=== PATIENT | female | born 1990 | race Caucasian/White ===

== ENCOUNTER 2016-12-22 13:13 | Inpatient (IN) | payer MEDICAID ==
[2016-12-22] VITALS (16 sets, daily range): BP systolic 113–150; BP diastolic 57–83; PULSE 58–92; TEMP 98.4–99.3
[~2016-12-22 13:13] MED LIST: AMOXICILLIN 50500 MG PO; AMOXICILLIN 8751 TAB PO; FLAGYL500 MG PO; GENTAMICIN EYE D5 ML; NO HOME MEDICATIONS; NORCO 325 MG-51 TAB PO; PERCOCET 325 MG1 TA2 PO
[2016-12-22 14:34] LABS: ADD PATHOLOGY DIFF REVIEW NO
[2016-12-22 14:47] LABS: HEMATOCRIT 38.7 % (37.0-47.0); HEMOGLOBIN 13.3 g/dl (12.5-16.0); MEAN CELL VOLUME 95 fl (80.0-100.0); MEAN CORPUSCULAR HEMOGLOBIN 33 pg (27.0-31.0); MEAN CORPUSCULAR HGB CONC 34 g/dl (33.0-37.0); PLATELET COUNT 270 K/mm3 (130-400); RED BLOOD COUNT 4.08 M/mm3 (4.10-5.30); REDCELL DISTRIBUTION WIDTH-CV 12.1 % (11.5-14.5); WHITE BLOOD COUNT 11.7 K/mm3 (4.8-10.8)
[2016-12-22 14:58] LABS: ADJUSTED CALCIUM 9.4 mg/dL (8.4-10.2); ALBUMIN 3.7 gm/dL (3.5-5.0); BILIRUBIN,TOTAL 0.5 mg/dL (0.0-1.0); CALCIUM 9.2 mg/dL (8.4-10.2); CREATININE, serum 0.69 mg/dL (0.52-1.25); POTASSIUM 3.8 mmol/L (3.4-5.0); TOTAL PROTEIN 7.5 gm/dL (6.4-8.2)
[2016-12-22 15:50] LABS: BAND 7 % (0-10); NEUTROPHILS 74 % (42.0-75.2); PLATELET ESTIMATE NORMAL (NORMAL); TOTAL CELLS COUNTED 100
[2016-12-22 15:50] LABS: AMPHETAMINE URINE NEGATIVE; BARBITURATES URINE NEGATIVE; BENZODIAZEPINES URINE NEGATIVE; BUPRENORPHINE URINE POSITIVE; METHADONE URINE NEGATIVE; OPIATES URINE NEGATIVE; OXYCODONE URINE NEGATIVE; PHENCYCLIDINE URINE NEGATIVE; PROPOXYPHENE URINE NEGATIVE; THC CANNABINOIDS URINE NEGATIVE
[2016-12-23] VITALS (11 sets, daily range): BP systolic 105–133; BP diastolic 56–86; PULSE 64–104; TEMP 98.5–98.8
[2016-12-23] MEDS ORDERED: MOTRIN 800800 MG/TAB PO (00:24)
[2016-12-25 08:05] LABS: FACTOR V LEIDEN MUTATION B Negative (Negative)
[2016-12-26 17:51] LABS: BETA-2 GPI IGG AABS <9.4 U/mL (()); BETA-2 GPI IGM AABS <9.4 U/mL (())
[2016-12-27 13:38] LABS: .ANTICARDIOLIPIN IGG <9.4 GPL (())
[2017-01-02 15:09] LABS: PARVOVIRUS B19 Negative (())
== END 2016-12-23 08:50 | disposition home or self-care (01) | DRG 767 ==
LOC: OB 13:13 → LDR 13:31
PROVIDERS: Obstetrics & Gynecology
PROC: 10E0XZZ Delivery of Products of Conception, External Approach (ICD-10-PCS; principal; 2016-12-23)
PROC: 10D17ZZ Extraction of Products of Conception, Retained, Via Natural or Artificial Opening (ICD-10-PCS; 2016-12-23)
DX: O36.4XX0 Maternal care for intrauterine death, not applicable or unspecified (principal); O73.1 Retained portions of placenta and membranes, without hemorrhage; O09.32 Supervision of pregnancy with insufficient antenatal care, second trimester; O99.334 Smoking (tobacco) complicating childbirth; F17.210 Nicotine dependence, cigarettes, uncomplicated; Z3A.24 24 weeks gestation of pregnancy; Z37.1 Single stillbirth
CPT/HCPCS: J0690; J2590; J2795; J7120